=== PATIENT | female | born 1995 | race Caucasian/White ===

== ENCOUNTER 2018-12-18 17:22 | Day surgery (SDC) | payer BC ==
[2018-12-18 18:03] VITALS: BMI 27.3
[2018-12-18] MEDS ORDERED: hydrALAZINE 20 MG/ML VIAL SLOW IVP PRN (18:18)
--- NOTE | 2018-12-18 18:42 | PRG ---
DATE OF SERVICE: 12/18/2018 TIME OF SERVICE: 18:10. PRESENTING COMPLAINT: Mid abdominal pain for 2 days. HISTORY OF PRESENT ILLNESS: Ms. Gee is a 23-year-old primigravida at 28 to 29 weeks [address] Johnson. She has had no issues until the last two days. She reports a pain that is in one single spot in her mid epigastrium between her umbilicus and her xiphoid. She states it seems to change with positioning. She denies rupture of membranes, dysuria, dysphagia, or indigestion. LABORATORY TECHNICIAN HISTORY: As noted. No antepartum record available on the unit. PAST MEDICAL HISTORY: None. PAST SURGICAL HISTORY: None. ALLERGIES: DENIES. MEDICATIONS: vitamins. SOCIAL HISTORY: Denies tobacco, alcohol, or IV drug use. FAMILY HISTORY: Noncontributory. REVIEW OF SYSTEMS: Noncontributory. PHYSICAL EXAMINATION: GENERAL: Pleasant white female, in no acute distress. VITAL SIGNS: Temperature 98.4, blood pressure 112/63, pulse 91, respirations 18. HEENT: Within normal limits. CHEST: Clear to auscultation bilaterally. HEART: Regular rhythm. ABDOMEN: Soft and nontender with a fundal height of 28-29 cm. FHTs are 140s with a category 1 heart rate tracing and audibly active fetus. The patient is point tender about senior living between her umbilicus and her xiphoid. Her uterine fundus is palpable there without any abnormality. EXTERNAL GENITALIA: Deferred. VAGINAL: Deferred. EXTREMITIES: No clubbing, cyanosis, or edema. IMPRESSION: Discomforts of , probable urachal stretching from increasing uterine size. No evidence of labor or other abnormality. PLAN: Patient reassured. Keep scheduled followup in [address] Johnson. ER precautions. Job ID: [id number]
== END 2018-12-18 18:30 | disposition home or self-care (01) ==
LOC: L&D/OP 17:22
PROVIDERS: ATTEND Student in an Organized Health Care Education/Training Program
DX: O26.893 Other specified pregnancy related conditions, third trimester (principal); R10.13 Epigastric pain; Z3A.28 28 weeks gestation of pregnancy
CPT/HCPCS: 99282

== ENCOUNTER 2019-03-13 17:41 | Day surgery (SDC) | payer BC ==
[2019-03-13 18:25] VITALS: BMI 29.5
[2019-03-13 18:41] VITALS: BP 113/78; TEMP 99.1
[2019-03-13] MEDS ORDERED: FLU VACC QS2019-20(6MOS UP)/PF 60 MCG/0.5 ML SYRINGE IM ONE (18:45)
--- NOTE | 2019-03-14 21:05 | SS ---
DATE OF ADMISSION: 03/13/2019 DATE OF DISCHARGE: 03/13/2019 REGULAR PROVIDER: Modesta Mendoza, certified nurse-lineworker. EVALUATING PHYSICIAN: Hector Villalta MD CHIEF COMPLAINT: Contractions. HISTORY OF PRESENT ILLNESS: Ms. Gee is a 23-year-old, white, G1, P0, with an estimated date of confinement of 03/12/2019, who presents complaining of contractions since this morning. She is a patient of Modesta Mendoza, and has been seen in the office this week and was noted to be 1 cm. She denies ruptured membranes or vaginal bleeding. PAST MEDICAL HISTORY: None. PAST SURGICAL HISTORY: Hague teeth. CURRENT MEDICATIONS: vitamins. ALLERGIES: NO KNOWN ALLERGIES. SOCIAL HISTORY: Denies tobacco, alcohol, or drug use. FAMILY HISTORY: Unremarkable. REVIEW OF SYSTEMS: Denies nausea, vomiting, fever, chills, ruptured membranes, or vaginal bleeding. PHYSICAL EXAMINATION: VITAL SIGNS: Stable. She is afebrile. GENERAL: She is pleasant, in no distress. ABDOMEN: Soft, nontender, and gravid. PELVIC: Cervix to be 1 cm, which is unchanged from her previous exam in the office. heart rate tracing is stable. There are no decelerations. Spontaneous accelerations are seen. Uterine contractions are seen every 5 to 7 minutes. The patient is allowed to walk and she returns. Uterine contractions remain mild every 5 minutes and her cervix is unchanged. ASSESSMENT: 1. 40-week intrauterine . 2. No evidence of cervical change at this time. PLAN: Modesta Mendoza was notified by Labor and Delivery staff. The patient was given the option to stay or to go home and rest. The patient has elected to go home with labor precautions. She voiced understanding of her discharge instructions and was sent home in good condition. Job ID: [id number] MTDD
== END 2019-03-13 22:20 | disposition home or self-care (01) ==
LOC: L&D/OP 17:41
PROVIDERS: ATTEND Obstetrics & Gynecology
DX: Z34.93 Encounter for supervision of normal pregnancy, unspecified, third trimester (principal); Z3A.40 40 weeks gestation of pregnancy

== ENCOUNTER 2019-03-14 08:53 | Inpatient (IN) | payer BC ==
[2019-03-14 09:19] VITALS: BMI 29.5
[2019-03-14] MEDS ORDERED: FLU VACC QS2019-20(6MOS UP)/PF 60 MCG/0.5 ML SYRINGE IM ONE (09:30)
[2019-03-14] MEDS ORDERED: HYDROcodone/Acetaminophen 5/325 mg Tablet PO PRN ×4 (09:50→23:50)
[2019-03-14] MEDS ORDERED: Lidocaine 1% (PF) 30 ML VIAL SC PRN (09:50)
[2019-03-14] MEDS ORDERED: Ibuprofen 800 MG TAB PO PRN (09:50)
[2019-03-14] MEDS ORDERED: hydrALAZINE 20 MG/ML VIAL SLOW IVP PRN ×2 (09:50→23:50)
[2019-03-14] MEDS ORDERED: Promethazine HCl 25 MG/ML VIAL IM PRN (09:50)
[2019-03-14] MEDS ORDERED: Butorphanol Tartrate 1 MG/ML VIAL SLOW IVP PRN (09:50)
[2019-03-14] MEDS ORDERED: Ondansetron PF 4 MG/2 ML Vial IVP PRN ×2 (09:50→23:50)
[2019-03-14] MEDS ORDERED: Methylergonovine 0.2 MG/ML VIAL IM PRN ×2 (09:50→23:50)
[2019-03-14] MEDS ORDERED: NS w/ Oxytocin 10 units 500 ML IV SCH (10:00)
[2019-03-14 10:10] LABS: Hemoglobin 12.8 g/dL (12.0-16.0); Mean Corpuscular HGB CONC 33.7 g/dL (32.0-36.0); Mean Corpuscular Hemoglobin 28.7 pg (27.0-31.0); Mean Corpuscular Volume 85.2 fL (78.0-98.0); Mean Platelet Volume 7.7 fL (7.4-10.4); Platelet Count 170 thou/uL (130-400); RBC Distribution Width 12.9 % (11.5-14.5); Red Blood Cell (RBC) Count 4.46 mill/uL (4.20-5.40); White Blood Cell (WBC) Count 11.1 thou/uL (4.8-10.8)
[2019-03-14] MEDS ORDERED: Fentanyl 4 mcg/Bup 0.1% Cadd 100 ML ONE ×2 (10:25→18:23)
[2019-03-14 10:52] LABS: Syphilis Antibody Nonreactive (Nonreactive); Syphilis Antibody Index 0.07 S/CO (<1.00 Non-Reactive)
[2019-03-14 10:53] LABS: HBSAg Index 0.17 S/CO (0-0.99); Hep B Surf Ag Non-Reactive S/CO (NonReactive)
[2019-03-14] MEDS: Lactated Ringer's 1,000 ML IV SCH ×2 (10:53→16:48)
[2019-03-14] MEDS ORDERED: Bupivacaine 0.25% HCL 30 ML VIAL ONE (15:23)
[2019-03-14] MEDS: NS / Oxytocin 40 units/1000ml 1,000 ML IV PRN ×2 (20:07→22:26)
--- NOTE | 2019-03-14 20:52 | PDOC.LDHP ---
Labor and Delivery H&P Chief complaint: contractions HPI: Patient was nai since last night. was seen in triage and sent home. Returned to hospital at 0900-1000am. Current gestational age (weeks): 40 Dating criteria: last menstrual period Grav: 1 Para: 0 Current complications: none Abnormal US findings: No Current medications: pre-sita vitamins Previous surgical history: other (wisdom teeth extractions) Allergies/Adverse Reactions: Allergies Allergy/AdvReac Type Severity Reaction Status Date / Time No Known Allergies Allergy Verified 03/13/19 18:24 Social history: none - Physical Exam Vital signs reviewed and normal: yes General: NAD, resting Lungs: nonlabored breathing Abdomen: gravid FHT: category 1 - Vaginal Exam cm dilated: 4 Effacement: 75% Station: -1 - OB Labs Blood type: AB RH: positive Antibody Screen: negative HIV: negative RPR: negative HEPSAg: negative 1 hour GCT: negative GBS: negative Urine drug screen: negative Rubella: immune - Assessment L&D Assessment: term patient in labor
--- NOTE | 2019-03-14 20:53 | PDOC.OPDEL ---
OB Operative/Delivery Note Delivery Dr/Surgeon: Radha Mendoza Pre-Delivery Diagnosis: active labor Procedure/Post Delivery Dx: spontaneous vaginal delivery Weeks gestation: 40 Anesthesia: epidural - Findings A Weight: 7 lb 1 oz - 1 min: 9 - 5 min: 9 - Additional Findings/Plan Placenta delivered: spontaneous Repaired Obstetrical Laceration: 1st degree Estimated blood loss: 200mL Compilations/Other Findings: temperature of 101.8 at time of delivery. will treat with Ancef x 1 dose. Post delivery plan: routine recovery
[2019-03-14] MEDS ORDERED: CEFAZOLIN 2 GM in Premix Bag 1 BAG IVPB SCH (21:00)
[2019-03-14] MEDS ORDERED: NS / Oxytocin 40 units/1000ml 1,000 ML IV SCH (23:50)
[2019-03-14] MEDS ORDERED: Bisacodyl 10 MG SUPP PR PRN (23:50)
[2019-03-14] MEDS ORDERED: Benzocaine-Menthol 82.5 ML CAN TOP PRN (23:50)
[2019-03-14] MEDS ORDERED: Milk Of Magnesia 30 ML UDCUP PO PRN (23:50)
[2019-03-14] MEDS ORDERED: Misoprostol 200 MCG TAB VAG PRN (23:50)
[2019-03-15] MEDS: Ibuprofen 800 MG TAB PO SCH ×3 (05:54→21:58)
[2019-03-15] MEDS: Ferrous Sulfate 325 MG TAB PO SCH ×2 (07:59→15:18)
[2019-03-15] MEDS ORDERED: Adacel (T-DAP) 0.5 ML SYRINGE IM ONE (09:00)
[2019-03-15] MEDS: Prenatal Vitamin 1 TAB PO SCH (09:16)
[2019-03-15] MEDS: Docusate Calcium (SURFAK) 240 MG CAP PO SCH ×2 (09:17→20:48)
--- NOTE | 2019-03-15 10:51 | PDOC.PP ---
Post Progress Note Post Day #: 1 Subjective: patient is doing well. Her vagina is really sore and her is sleepy. PO intake tolerated: yes Flatus: yes Ambulation: yes Vital Signs (12 hours) Temp Pulse Resp BP Pulse Ox 03/15/19 08:06 99.0 F 97 20 122/61 95 03/15/19 05:55 100.1 F H 03/15/19 04:05 100.1 F H 98 16 114/57 L 98 03/15/19 01:09 99.3 F 88 16 112/70 98 03/14/19 23:55 99.5 F 82 18 118/70 100 Weight Weight 156 lb - Physical Examination General: NAD Respiratory: non-labored breathing Abdominal: lochia (minimal), no distention Extremities: negative homans (B) Skin: no rash Neurological: no gross focal deficits Psychiatric: A&Ox3, normal affect Result Diagrams: 03/14/19 09:57 Additional Labs: Post Labs Blood Type AB POSITIVE 03/14/19 12:08 Hep Bs Antigen Non-Reactive S/CO (NonReactive) 03/14/19 09:57 (1) (spontaneous vaginal delivery) Code(s): O80 - ENCOUNTER FOR FULL-TERM UNCOMPLICATED DELIVERY Status: Acute (2) Chorioamnionitis Code(s): O41.1290 - CHORIOAMNIONITIS, UNSP TRIMESTER, NOT APPLICABLE OR UNSP Status: Acute - Assessment/Plan A: g1 now p1 s/p complicated by chorioamnionitis at time of delivery P: restart ABX therapy due to temperature elevation post delivery
[2019-03-15] MEDS ORDERED: Azithromycin 500 MG in Sodium Chloride 0.9% 250 ML 250 ML IVPB SCH (12:00)
[2019-03-15] MEDS: CEFAZOLIN 2 GM in Premix Bag 1 BAG IVPB SCH ×2 (14:26→21:59)
[2019-03-16] MEDS: CEFAZOLIN 2 GM in Premix Bag 1 BAG IVPB SCH (05:53)
[2019-03-16] MEDS: Ibuprofen 800 MG TAB PO SCH ×2 (05:53→14:32)
[2019-03-16 08:21] VITALS: BP 120/75; TEMP 98.9
[2019-03-16] MEDS: Docusate Calcium (SURFAK) 240 MG CAP PO SCH (08:54)
[2019-03-16] MEDS: Prenatal Vitamin 1 TAB PO SCH (08:54)
[2019-03-16] MEDS: Ferrous Sulfate 325 MG TAB PO SCH (09:28)
== END 2019-03-16 16:11 | disposition home or self-care (01) | DRG 806 ==
LOC: L&D/OP 08:53 → L&D 11:08 → 3SE 23:52
PROVIDERS: ADMIT Obstetrics & Gynecology; ATTEND Obstetrics & Gynecology
PROC: 10E0XZZ Delivery of Products of Conception, External Approach (ICD-10-PCS; principal; 2019-03-15)
PROC: 0HQ9XZZ Repair Perineum Skin, External Approach (ICD-10-PCS; 2019-03-15)
DX: O41.1230 Chorioamnionitis, third trimester, not applicable or unspecified (principal); O86.4 Pyrexia of unknown origin following delivery; Z37.0 Single live birth; O70.0 First degree perineal laceration during delivery; Z3A.40 40 weeks gestation of pregnancy
CPT/HCPCS: 36415; 85027; 86780; 86850; 86900; 86901; 87340; 99282; J0456; J0690; J7050; S0020